=== PATIENT | female | born 1965 | race Caucasian/White ===

== ENCOUNTER 2021-01-14 11:37 | Emergency (ER) | payer MEDICAID ==
[~2021-01-14] VITALS: Ht 157.5 cm; Wt 49.5 kg
[2021-01-14 11:49] VITALS: BP 149/77
[2021-01-14 12:55] LABS: BASOPHILS % (AUTO) 1 % (0-1); EOSINOPHILS % (AUTO) 1 % (1-7); LYMPHOCYTES % (AUTO) 26 % (22-44); MEAN CORPUSCULAR HEMOGLOBIN 32.8 pg (27.0-34.8); MEAN CORPUSCULAR HGB CONC 34.3 g/dL (32.4-35.8); MEAN PLATELET VOLUME 7.4 fL (7.4-10.4); MONOCYTES % (AUTO) 5 % (2-9); NEUTROPHILS % (AUTO) 67 % (42-75); PLATELET COUNT 323 x10^3/uL (130-400); RED BLOOD COUNT 4.05 x10^6/uL (3.82-5.3); RED CELL DISTRIBUTION WIDTH 12.8 % (9.6-15.2)
[2021-01-14] MEDS ORDERED: ONDANSETRON 2MG/ML, 2ML IVPush ONE (13:00)
[2021-01-14] MEDS ORDERED: SODIUM CHLORIDE 0.9% 1,000ML IVBOLUS ONE (13:00)
[2021-01-14] MEDS ORDERED: SODIUM CHLORIDE FLUSH 10ML SYR IVF ONE (13:00)
[2021-01-14] MEDS ORDERED: ONDANSETRON 2MG/ML, 2ML ONE (13:07)
[2021-01-14 13:08] LABS: ALBUMIN 3.3 g/dL (3.4-5.0); CALCIUM 8.7 mg/dL (8.5-10.1)
[2021-01-14 13:11] LABS: ALANINE AMINOTRANSFERASE 20 U/L (12-78); ALKALINE PHOSPHATASE 91 U/L (45-117); BILIRUBIN,TOTAL 0.2 mg/dL (0.2-1.0); CREATININE 0.62 mg/dL (0.55-1.02); TOTAL PROTEIN 7.1 g/dL (6.4-8.2)
--- NOTE | 2021-01-14 13:18 | NUR ---
PT STATED SHE NO LONGER WANTED TREATMENT. PT SIGNED AMA.
[2021-01-14 13:27] LABS: ANION GAP 3 mmol/L (5-15); CHLORIDE 106 mmol/L (98-107)
== END 2021-01-14 13:20 | disposition left against medical advice (07) ==
LOC: ED 12:48
DX: R11.2 Nausea with vomiting, unspecified (principal); R19.7 Diarrhea, unspecified; R10.9 Unspecified abdominal pain; Z87.891 Personal history of nicotine dependence
CPT/HCPCS: 36415; 80053; 83690; 85025; 99283

== ENCOUNTER 2021-02-11 10:59 | Emergency (ER) | payer MEDICAID ==
[~2021-02-11] VITALS: Ht 157.5 cm; Wt 60.0 kg
[2021-02-11 11:09] VITALS: BP 129/56
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
--- NOTE | 2021-02-11 12:27 | NUR ---
ASSUMING CARE OF PT. PT RESTING IN BED. SAFETY PRECAUTIONS IN PLACES. SITTER AT BEDSIDE.
--- NOTE | 2021-02-11 12:44 | NUR ---
DR. PARIKH TO BEDSIDE FOR EVALUATION.
--- NOTE | 2021-02-11 13:28 | NUR ---
Chart placed for recheck, pt sitting on NAD. bruce
== END 2021-02-11 18:23 | disposition home or self-care (01) ==
LOC: ED 11:02
DX: S80.11XA Contusion of right lower leg, initial encounter (principal); R45.6 Violent behavior; Z87.891 Personal history of nicotine dependence; X58.XXXA Exposure to other specified factors, initial encounter; Y93.89 Activity, other specified; Y92.89 Other specified places as the place of occurrence of the external cause; Y99.8 Other external cause status
CPT/HCPCS: 99285